=== PATIENT | male | born 1955 | race Hispanic/Latino ===

== ENCOUNTER 2021-01-25 10:51 | Day surgery (SDC) | payer BC ==
[2021-01-25] MEDS ORDERED: propofoL 200 MG/20 ML VIAL IV ONE (12:06)
[2021-01-25] MEDS ORDERED: LIDOCAINE 2% MPF 5 ML VIAL ONE (12:06)
[2021-01-25] MEDS ORDERED: ROCURONIUM 50 MG/5 ML VIAL IV ONE (12:07)
[2021-01-25] MEDS ORDERED: FENTANYL CITR 100 MCG/2 ML ONE (12:10)
[2021-01-25] MEDS ORDERED: NA CHLORIDE 0.9% 1,000 ML ONE (12:38)
--- NOTE | 2021-01-25 12:44 | P.CNS ---
Date of Consult: 01/25/21 Reason for Consult: Medical clearance Requesting Physician: Oleg Hinojosa Primary Care Provider: Dr. Bradford([place]) Chief Complaint: Preop for anterior chamber washout History of Present Illness: 66-year-old male with history of diabetes presents for anterior chamber washout by Ophthalmology. I was consulted for medical management and clearance. Patient reports that he had had blurry vision with his cataract. He had surgery within the past 2 weeks by Ophthalmology. Procedure was done at another location. After procedure patient developed hyphema. Patient was seen by Ophthalmology this past week. Pressures have increased. Ophthalmology recommends anterior chamber washout. Patient here for procedure. Anesthesia requests medical clearance. Patient stable this time. No complaints noted. Some vision loss noted to the left side. Patient without fever, chills, nausea or vomiting. No chest pain or shortness of breath noted. Allergies No Known Allergies Allergy (Unverified 01/25/21 12:17) Home medications list reviewed: Yes - Past Medical/Surgical History -: Diabetes mellitus type 2 insulin-dependent -: Hx of COVID19, September 2020 -: Benign ear mass removed Psychosocial/ Personal History: Patient is - Social History Smoking Status: Never smoker Alcohol use: No CD- Drugs: No Caffeine use: No Place of Residence: Home Review of Systems General: As per HPI Eyes: Conjunctivae Inflammation, Eyelid Inflammation, Redness, As per HPI ENT: Unremarkable Respiratory: Unremarkable Cardiovascular: Unremarkable Gastrointestinal: Unremarkable Genitourinary: Unremarkable Musculoskeletal: Unremarkable Integumentary: Unremarkable Neurological: Unremarkable Lymphatics: Unremarkable Physical Examination General: Alert, In no apparent distress, Oriented x3, Cooperative HEENT: Atraumatic, Other (Erythema noted to the left eye. ) Respiratory: Clear to auscultation bilaterally, Normal air movement Cardiovascular: Normal pulses, Regular rate/rhythm Gastrointestinal: Normal bowel sounds, No tenderness, No masses, No rebound, No guarding Musculoskeletal: No erythema, No tenderness, No warmth Integumentary: No tenderness/swelling, No erythema, No warmth, No cyanosis Neurological: Normal speech, Normal strength at 5/5 x4 extr, Normal tone, Normal affect Conclusions/Impression: Impression: Left hyphema with recent lens and cataract removal Diabetes mellitus type 2 insulin-dependent Plan: Patient seen and evaluated. Patient with low medical risk. Okay and cleared for surgery from a medical standpoint. Anesthesia desires lab-BMP, CBC and EKG. This will be obtained in reviewed by anesthesia prior to procedure. Case discussed with Ophthalmology. Patient will proceed with planned anterior chamber washout as recommended by Ophthalmology. Patient will be discharged home after procedure. Patient will follow up with PCP as an outpatient to further address his diabetes. Follow up with Ophthalmology as directed. Time Spent Managing Pts care (In Minutes): 45
[2021-01-25] MEDS ORDERED: SUCCINYLCHOLINE 20 MG/ML (10 ML) IV ONE (12:45)
[2021-01-25 12:57] LABS: Absolute Lymphocytes (CBC) 2.7 K/uL (0.7-4.9); Basophils % 0.4 % (0-1.3); Hematocrit 33.9 % (39.6-49.0); Lymphocytes % 31.1 % (15.3-44.8); MPV 8.6 fL (7.6-11.3); RBC Red Blood Cell Count 3.63 M/uL (4.33-5.43)
[2021-01-25] MEDS: EPINEPHRINE/PF 1 MG/ML AMP ONE ×2 (13:06→14:02)
[2021-01-25] MEDS: BALANCED SALT IRRIG PLAIN 500 ML BTL IRR ONE ×2 (13:06→14:02)
[2021-01-25] MEDS: TOBRADEX 0.3-0.1% OPTH OINTMENT ONE ×2 (13:08→14:06)
[2021-01-25] MEDS: POVIDONE-IODINE 5% EYE DROPS ONE ×2 (13:08→14:02)
[2021-01-25] MEDS: DUOVISC 1 KIT OPTH ONE ×2 (13:08→14:06)
[2021-01-25 13:21] LABS: Potassium 4.4 mmol/L (3.5-5.1)
[2021-01-25] MEDS ORDERED: MIDAZOLAM HCL 2 MG/2 ML INJ ONE (13:45)
[2021-01-25] MEDS ORDERED: MOXIFLOXACIN HCL 10 DROPS/ML **OR USE OPTH ONE (13:51)
[2021-01-25] MEDS ORDERED: OFLOXACIN OPH 0.3%-5 ML BTL ONE (13:51)
[2021-01-25] MEDS ORDERED: NEO/POLY/DEX OPTH 3.5 GM TUBE ONE (13:51)
[2021-01-25] MEDS: FENTANYL CITR 100 MCG/2 ML ONE ×2 (14:30→14:35)
[2021-01-25] MEDS ORDERED: ACETAMINOPHEN 325 MG TABLET ONE (15:02)
--- NOTE | 2021-01-25 22:54 | OP ---
Date of Procedure: 01/25/2021 Surgeon: Oleg Hinojosa MD Market Development Analyst: None. Preoperative Diagnosis: Hyphema, left eye. Postoperative Diagnosis: Hyphema, left eye. Procedure Performed: Anterior chamber washout of hyphema, left eye. Procedure In Detail: After being properly identified in the preoperative holding area, the patient was taken back to the operating room where a time-out was performed. The patient was then prepped and draped in normal sterile fashion. Examination of the eye underneath the operating microscope revealed a hyphema that had migrated and now sits at the superior aspect of the pupil, which had been visible in the office when the patient was upright, was obscured as well as a very large nasal pterygium. Because of this, the decision was made to operate temporally. Using a 1 mm side incision blade, a paracentesis wound was made in the 12 o'clock and 6 o'clock position with careful attention to angle upward so as not to impail the iris. This patient was post vitrectomy. As soon as the incision was made, some RBCs spilled out and additional RBCs were able to be irrigated out using intraocular BSS on a 25-gauge cannula. Once this had failed to produce any additional clearing, but significant hyphema remained and visualization of the iris and pupil was had, bimanual irrigation and aspiration handpieces were used in order to irrigate the anterior chamber further. This accomplished a clearing almost immediately with good visibility of the intra-ocular lens as well as the iris. Initially it appeared that the iris was actively bleeding as fresh blood did appear to stream from the rubeosis iridis. However, additional irrigation and aspiration was able to remove this and the bleeding ceased. Of note, the intra-ocular lens was visible and did move, but this was able to be repositioned centrally. An air bubble was placed into the anterior chamber in order to help maintain stability and then additional intra-ocular BSS added in the chamber, looked well maintained, but the wounds were checked with a Weck-Stacy. which did show a small amount of leakage at the inferior wound and therefore a single 10-0 nylon suture was placed tied in an interrupted fashion and then rotated until the knot was buried. Additional infusion of intraocular BSS on a 30-gauge cannula was performed until the anterior chamber looked and remained stable and had a good pressure. This was observed for several minutes and with no leakage, shrinkage of the air bubble and more importantly no additional bleeding observed, the procedure concluded. The patient tolerated the procedure extremely well and the drapes and lid speculum were removed and TobraDex ointment placed in the orbit and fornix. An extra-ocular shield was placed, but no bandage and the patient was taken to the postoperative holding area in stable condition. Estimated Blood Loss: Less than 5 mL. Complications: There were no complications. Specimen: There were no specimen sent. The patient is to follow up with myself Dr. Oleg Hinojosa at the [facility] [place] tomorrow morning. JPG/MODL Voice ID: [id number] Report ID: [id number] MTDD
--- NOTE | 2021-02-25 17:04 | P.CNS ---
Date of Consult: 01/25/21 (Order for Prezas) Reason for Consult: Medical Clearance Requesting Physician: Oleg Hinojosa Primary Care Provider: Dr. Bradford([place]) Chief Complaint: Preop for anterior chamber washout Allergies No Known Allergies Allergy (Unverified 01/25/21 12:17) - Past Medical/Surgical History -: Diabetes mellitus type 2 insulin-dependent -: Hx of COVID19September 2020 -: Benign ear mass removed Psychosocial/ Personal History: Patient is - Social History Smoking Status: Never smoker Alcohol use: No CD- Drugs: No Caffeine use: No Place of Residence: Home Physical Examination Temp Pulse Resp BP Pulse Ox 97.7 F 76 16 124/75 01/25/21 15:10 01/25/21 15:10 01/25/21 15:10 01/25/21 15:10
== END 2021-01-25 15:25 | disposition home or self-care (01) ==
LOC: DS 10:51
PROVIDERS: ATTEND Ophthalmology
PROC: 3E1CX8Z Irrigation of Eye using Irrigating Substance (ICD-10-PCS; principal; 2021-01-25 13:00)
DX: H21.02 Hyphema, left eye (principal); E11.9 Type 2 diabetes mellitus without complications; T81.9XXA Unspecified complication of procedure, initial encounter; Z98.890 Other specified postprocedural states; Z20.822 Contact with and (suspected) exposure to COVID-19
CPT/HCPCS: 85025; 80048; 36415; 82947; 66999; U0003; J2704; J0171; J0330; J2250; J3010 ×2; J7030